=== PATIENT | female | born 1985 | race Caucasian/White ===

== ENCOUNTER 2016-12-20 00:40 | Inpatient (IN) | payer OTHER ==
[~2016-12-20 00:40] MED LIST: BUTORPHANOL TARTRATE 1 MG/ML VIAL IVPUSH ONE; DEXTROSE 5%-LACTATED RINGERS 1,000 ML IV SCH
[2016-12-20 01:13] LABS: BASOPHIL 0.3 % (0-2.0); EOSINOPHIL 0.1 % (0-4.5); MCH 29.7 pg (25.7-33.7); MCHC 33.9 g/dl (32.0-36.0); MEAN CELL VOLUME 87.5 fl (80-96); MEAN PLT VOLUME 9.4 fl (7.5-11.1); PLATELET COUNT 145 K/MM3 (134-434); RDW 13.8 % (11.6-15.6)
[2016-12-20 01:27] LABS: INR 0.95 (0.82-1.09); PROTHROMBIN TIME (PATIENT) 10.4 SEC (9.98-11.88)
[2016-12-20 01:30] LABS: ACTIVATED PTT 30.1 SECONDS (26.9-34.4)
[2016-12-20 01:40] LABS: CALCIUM 8.3 mg/dL (8.5-10.1); CREATININE 0.5 mg/dL (0.55-1.02)
[2016-12-20 01:48] VITALS: BMI 27.0
--- NOTE | 2016-12-20 04:26 | HP ---
Admitting History and Physical - Admission Chief Complaint: labor pains History of Present Illness: 31 y/o comes with complaints of labor pains, pt at [facility] History Source: Patient Limitations to Obtaining History: No Limitations - Past Medical History PRICER: No: Alzheimer's, CVA, Dementia, Migraine, Multiple Sclerosis, Peripheral Neuropathy, Parkinson's, Seizure, Syncope, TIA, Vertigo, Other Cardiovascular: No: AFIB, Aneurysm, Aortic Insufficiency, Aortic Stenosis, CAD, CHF, Deep Vein Thrombosis, HTN, Hyperlipdemia, DC, Mitral Insufficiency, Mitral Stenosis, Murmur, Pulmonary Hypertension, Other Gastrointestinal: No: Ascites, Cancer, Constipation, Crohn's Disease, Diverticulitis, Diverticulosis, Esophageal Varices, Gastritis, GERD, GI Bleed, Hemorrhoids, Hiatal Hernia, Inflamatory Bowel Disease, Irritable Bowel Disease, Pancreatitis, Peptic Ulcer Disease, Ulcerative Colitis, Other Hepatobiliary: No: Cirrhosis, Cholelithiasis, Cholecystitis, Choledocholithiasis , Hepatitis A, Hepatitis B, Hepatitis C, Other Renal/: No: Renal Failure, Renal Inusuff, BPH, Cancer, Hematuria, Hemodialysis , Neurogenic Bladder, Renal Calculi, UTI, Other Reproductive: No: Ectopic , Endometriosis, Fibroids, PID, Polycystic Ovary Syndrome, Postmenopausal, Other ...: 2 ...Para: 1 - Smoking History Smoking history: Never smoked Have you smoked in the past 12 months: No - Alcohol/Substance Use Hx Alcohol Use: No Home Medications - Allergies Allergies/Adverse Reactions: Allergies Allergy/AdvReac Type Severity Reaction Status Date / Time No Known Allergies Allergy Verified 03/28/12 16:16 - Home Medications Home Medications: Ambulatory Orders Pnv95/Ferrous Fumarate/FA [ Tablet] 1 each PO DAILY 03/28/12 Physical Examination Vital Signs: Vital Signs Temperature 99.0 F 12/20/16 03:00 Pulse Rate 88 12/20/16 03:00 Respiratory Rate 20 12/20/16 03:00 Blood Pressure 133/79 12/20/16 03:00 O2 Sat by Pulse Oximetry (%) Constitutional: Yes: Well Nourished Eyes: Yes: WNL HENT: Yes: WNL Neck: Yes: WNL Cardiovascular: Yes: WNL Respiratory: Yes: WNL Gastrointestinal: Yes: WNL Renal/: Yes: WNL Breast(s): Yes: WNL Musculoskeletal: Yes: WNL Extremities: Yes: WNL Integumentary: Yes: WNL Neurological: Yes: WNL ...Motor Strength: WNL Labs: CBC, BMP 12/20/16 00:50 12/20/16 00:50 Assessment/Plan as absove oob labs
[2016-12-20] MEDS ORDERED: ELECTROLYTE-148 SOLN 1,000 ML IV SCH (04:30)
--- NOTE | 2016-12-20 04:57 | PN ---
Ante-Partal Exam - Subjective Vital Signs: Vital Signs Temperature 98.1 F 12/20/16 04:00 Pulse Rate 87 12/20/16 04:00 Respiratory Rate 20 12/20/16 04:00 Blood Pressure 131/81 12/20/16 04:00 O2 Sat by Pulse Oximetry (%) Headache: No Visual changes: No Right upper quadrant pain: No - Contractions Contractions: Yes Regularity: Regular Intensity: Mild/Mod Monitor Mode: External - Exam during Labor Heart Rate: 150 Variability: Moderate Category: I Monitor Accelerations: Present Monitor Decelerations: None Exam: Vaginal Dilatation (cm): 10 Effacement (%): 100 Amniotic Membrane Status: Ruptured Nitrazine Test: Positive Amniotic Fluid: Clear Station: +1 - Assessment/Plan Assessment/Plan: pushing with good efforts expect
--- NOTE | 2016-12-20 05:31 | PN ---
Ante-Partal Exam - Subjective Vital Signs: Vital Signs Temperature 98.1 F 12/20/16 04:00 Pulse Rate 87 12/20/16 04:00 Respiratory Rate 20 12/20/16 04:00 Blood Pressure 131/81 12/20/16 04:00 O2 Sat by Pulse Oximetry (%) Bleeding: No Headache: No Visual changes: No Right upper quadrant pain: No - Contractions Contractions: Yes Regularity: Regular Intensity: Moderate Monitor Mode: External - Exam during Labor Heart Rate: 150 Variability: Moderate Category: I Monitor Accelerations: Present Monitor Decelerations: None Exam: Vaginal Dilatation (cm): 150 Effacement (%): 100 Amniotic Membrane Status: Ruptured Nitrazine Test: Positive Station: +1 (expect vaginal delivery)
--- NOTE | 2016-12-20 06:46 | PN ---
Delivery - Delivery Type of Anesthesia: None Episiotomy/Laceration: 1st degree EBL (cc): 300 Delivery, Single - Feeding Plan Initial Plan: Exclusive throughout hospitalization
[2016-12-20] MEDS ORDERED: BENZOCAINE 28 GM HEMORRHOIDAL OINTMENT TP PRN (06:47)
[2016-12-20] MEDS ORDERED: BENZOCAINE 20% 57 GM BOTTLE TP PRN (06:47)
[2016-12-20] MEDS ORDERED: METHYLERGONOVINE MALEATE 0.2 MG/1 ML AMP IM PRN (06:47)
[2016-12-20] MEDS ORDERED: BISACODYL 10 MG SUPP.RECT RC PRN (06:47)
[2016-12-20] MEDS ORDERED: WITCH HAZEL 50% (TUCKS) 40 PAD/JAR PAD TP PRN (06:47)
[2016-12-20] MEDS ORDERED: IBUPROFEN 800 MG/8 ML IJ IVPB PRN (06:48)
[2016-12-20] MEDS ORDERED: OXYTOCIN 20 UNITS in 0.9% NS 1,000 ML IV SCH (07:00)
[2016-12-20] MEDS: ACETAMINOPHEN 325 MG TABLET (FP) PO PRN (08:09)
[2016-12-20] MEDS: oxyCODONE HCL 5 MG TABLET PO PRN ×2 (10:44→18:07)
[2016-12-20] MEDS: IBUPROFEN 600 MG TABLET (FP) PO PRN (18:06)
[2016-12-21] MEDS: ACETAMINOPHEN 325 MG TABLET (FP) PO PRN (01:59)
[2016-12-21] MEDS: IBUPROFEN 600 MG TABLET (FP) PO PRN ×4 (02:00→23:22)
[2016-12-21 07:56] LABS: BASOPHIL 0.5 % (0-2.0); EOSINOPHIL 0.7 % (0-4.5); MCH 30.3 pg (25.7-33.7); MEAN PLT VOLUME 8.9 fl (7.5-11.1); NEUTROPHILS 73.8 % (42.8-82.8); PLATELET COUNT 123 K/MM3 (134-434); WHITE BLOOD COUNT 8.8 K/mm3 (4.0-10.0)
[2016-12-21] MEDS: oxyCODONE HCL 5 MG TABLET PO PRN ×3 (10:38→23:20)
--- NOTE | 2016-12-21 13:11 | PN ---
Post Progress Note - Subjective Subjective: 31 yo Para 2, status post normal vaginal delivery, seen and evaluated. She c/o moderate perineum pain due to swollen perineum. She's breast feeding. Type of Delivery: Vital Signs: Vital Signs Temperature 98.2 F 12/21/16 10:00 Pulse Rate 77 12/21/16 10:00 Respiratory Rate 20 12/21/16 10:00 Blood Pressure 128/79 12/21/16 10:00 O2 Sat by Pulse Oximetry (%) 99 12/20/16 07:30 Breast Exam: Yes: Soft Uterus: Yes: Fundus Firm Abdomen/GI: Yes: Abdomen soft, Tolerating PO Lochia: Yes: Rubra Lochia, amount: Moderate Extremities: Yes: Calves non-tender Perineum: Yes: Laceration (Swollen left labia) Activity: Ambulating - Labs Labs: CBC WBC 8.8 K/mm3 (4.0-10.0) 12/21/16 07:30 RBC 3.49 M/mm3 (3.60-5.2) L 12/21/16 07:30 Hgb 10.6 GM/dL (10.7-15.3) L D 12/21/16 07:30 Hct 31.1 % (32.4-45.2) L D 12/21/16 07:30 MCV 89.0 fl (80-96) 12/21/16 07:30 MCHC 34.0 g/dl (32.0-36.0) 12/21/16 07:30 RDW 14.0 % (11.6-15.6) 12/21/16 07:30 Plt Count 123 K/MM3 (134-434) L 12/21/16 07:30 MPV 8.9 fl (7.5-11.1) 12/21/16 07:30 Neutrophils % 73.8 % (42.8-82.8) 12/21/16 07:30 Lymphocytes % 20.2 % (8-40) D 12/21/16 07:30 Monocytes % 4.8 % (3.8-10.2) 12/21/16 07:30 Eosinophils % 0.7 % (0-4.5) D 12/21/16 07:30 Basophils % 0.5 % (0-2.0) 12/21/16 07:30 Problem List - Problems (1) Status post normal vaginal delivery Code(s): [id number] - Assessment/Plan Status post vaginal delivery Swollen perineum Continue ice pack Continue observation
[2016-12-21] MEDS ORDERED: SENNOSIDES/DOCUSATE COMBO (SENNA PLUS) TABLET (UD) PO PRN (22:00)
[2016-12-22] MEDS: oxyCODONE HCL 5 MG TABLET PO PRN (04:26)
[2016-12-22] MEDS: IBUPROFEN 600 MG TABLET (FP) PO PRN ×2 (04:28→10:07)
--- NOTE | 2016-12-22 05:46 | PN ---
Post Progress Note - Subjective Subjective: cc/o vulva soreness, burning inthe area when she urinates Post Day: 2 Type of Delivery: Vital Signs: Vital Signs Temperature 98.6 F 12/21/16 22:00 Pulse Rate 89 12/21/16 22:00 Respiratory Rate 18 12/21/16 22:00 Blood Pressure 109/82 12/21/16 22:00 O2 Sat by Pulse Oximetry (%) 99 12/20/16 07:30 Breast Exam: Yes: Soft, Other (Bf). No: Engorged Uterus: Yes: Fundus Firm, Fundus below umbilicus, Non-tender Lochia: Yes: Rubra Lochia, amount: Moderate Extremities: Yes: Calves non-tender, Edema Perineum: Yes: Laceration (Left labium minus swelling, soft, sutures on inner aspect seen , tender , using Tucks & coldpacks ) Activity: Ambulating - Labs Labs: CBC WBC 8.8 K/mm3 (4.0-10.0) 12/21/16 07:30 RBC 3.49 M/mm3 (3.60-5.2) L 12/21/16 07:30 Hgb 10.6 GM/dL (10.7-15.3) L D 12/21/16 07:30 Hct 31.1 % (32.4-45.2) L D 12/21/16 07:30 MCV 89.0 fl (80-96) 12/21/16 07:30 MCHC 34.0 g/dl (32.0-36.0) 12/21/16 07:30 RDW 14.0 % (11.6-15.6) 12/21/16 07:30 Plt Count 123 K/MM3 (134-434) L 12/21/16 07:30 MPV 8.9 fl (7.5-11.1) 12/21/16 07:30 Neutrophils % 73.8 % (42.8-82.8) 12/21/16 07:30 Lymphocytes % 20.2 % (8-40) D 12/21/16 07:30 Monocytes % 4.8 % (3.8-10.2) 12/21/16 07:30 Eosinophils % 0.7 % (0-4.5) D 12/21/16 07:30 Basophils % 0.5 % (0-2.0) 12/21/16 07:30 Assessment/Plan stable. Plan rivka care explained discharge today
[2016-12-22] MEDS: ACETAMINOPHEN 325 MG TABLET (FP) PO PRN (10:06)
[2016-12-22 11:21] VITALS: BP 117/68; PULSE 81; TEMP 98.2
== END 2016-12-22 13:10 | disposition home or self-care (01) | DRG 560 ==
LOC: JLDR 00:40 → J3W 07:48
PROVIDERS: ADMIT Obstetrics & Gynecology; ATTEND Obstetrics & Gynecology
PROC: 10E0XZZ Delivery of Products of Conception, External Approach (ICD-10-PCS; principal; 2016-12-20)
PROC: 0HQ9XZZ Repair Perineum Skin, External Approach (ICD-10-PCS; 2016-12-20)
DX: O70.0 First degree perineal laceration during delivery (principal); Z3A.39 39 weeks gestation of pregnancy; Z37.0 Single live birth
CPT/HCPCS: 36415; 59409; 80048; 85025; 85610; 85730; 86593; 86850; 86900; 86901